=== PATIENT | male | born 1970 | race Caucasian/White ===

== ENCOUNTER 2019-05-09 15:34 | Emergency (ER) | payer OTHER ==
--- NOTE | 2019-05-09 16:20 | RAD REPORT ---
EXAM DESCRIPTION: CT - Stone Protocol - 05/09/2019 4:07 pm CLINICAL HISTORY: Abdominal pain. Inguinal swelling COMPARISON: None. TECHNIQUE: Computed axial tomography of the abdomen pelvis was obtained without oral or IV contrast. Lack of IV and oral contrast limits evaluation of solid organs, bowel, and vessels. Coronal reformat erickson images were obtained and reviewed. All CT scans are performed using dose optimization technique as appropriate and may include automated exposure control or mA/KV adjustment according to patient size. FINDINGS: A renal calculus is not seen. An ureteral calculus is not noted. A bladder calculus is not present. A 22 millimeter hepatic cyst Spleen, pancreas and adrenals appear grossly normal There is no evidence of diverticulitis. The appendix appears normal Small left inguinal hernia contains fat IMPRESSION: Negative for a genitourinary calculus Small left inguinal hernia contains fat
--- NOTE | 2019-05-09 17:07 | EDPHYS ---
Physician Documentation [facility] Name: Sarabjit Renner Age: 48 yrs Sex: Male : 1970 Arrival Date: 05/09/2019 Time: 15:36 Bed 16 Private MD: ED Physician William Tafoya HPI: 05/08 18:53 This 48 yrs old Male presents to ER via Ambulatory with complaints of Hernia. kb 18:53 The patient presents with swelling, of the left inguinal area. Onset: The kb symptoms/episode began/occurred 1 month(s) ago. Modifying factors: The symptoms are alleviated by nothing, the symptoms are aggravated by nothing. Associated signs and symptoms: The patient has no apparent associated signs or symptoms. Severity of symptoms: At their worst the symptoms were moderate, in the emergency department the symptoms are unchanged. The patient has not experienced similar symptoms in the past. The patient has not recently seen a physician. Pt reports swelling to left groin over the last month. Historical: - Allergies: 15:51 No Known Allergies; ca1 - Home Meds: 15:51 None [Active]; ca1 - PMHx: 15:51 Deaf; ca1 - PSHx: 15:51 Vasectomy; ca1 - Immunization history:: Adult Immunizations up to date, Flu vaccine is up to date. - Social history:: Smoking status: Patient denies any tobacco usage or history of. ROS: 18:52 Constitutional: Negative for fever, chills, and weight loss, Cardiovascular: Negative kb for chest pain, palpitations, and edema, Respiratory: Negative for shortness of breath, cough, wheezing, and pleuritic chest pain, Abdomen/GI: Negative for abdominal pain, nausea, vomiting, diarrhea, and constipation, Back: Negative for injury and pain, MS/Extremity: Negative for injury and deformity, Skin: Negative for injury, rash, and discoloration, Neuro: Negative for headache, weakness, numbness, tingling, and seizure. 18:52 : Positive for swelling in groin. Exam: 18:52 Constitutional: This is a well developed, well nourished patient who is awake, alert, kb and in no acute distress. Head/Face: Normocephalic, atraumatic. Neck: Trachea midline, no thyromegaly or masses palpated, and no cervical lymphadenopathy. Supple, full range of motion without nuchal rigidity, or vertebral point tenderness. No Meningismus. Chest/axilla: Normal chest wall appearance and motion. Nontender with no deformity. No lesions are appreciated. Cardiovascular: Regular rate and rhythm with a normal S1 and S2. No gallops, murmurs, or rubs. Normal PMI, no JVD. No pulse deficits. Respiratory: Lungs have equal breath sounds bilaterally, clear to auscultation and percussion. No rales, rhonchi or wheezes noted. No increased work of breathing, no retractions or nasal flaring. Abdomen/GI: Soft, non-tender, with normal bowel sounds. No distension or tympany. No guarding or rebound. No evidence of tenderness throughout. Skin: Warm, dry with normal turgor. Normal color with no rashes, no lesions, and no evidence of cellulitis. MS/ Extremity: Pulses equal, no cyanosis. Neurovascular intact. Full, normal range of motion. Neuro: Awake and alert, GCS 15, oriented to person, place, time, and situation. Cranial nerves II-XII grossly intact. Motor strength 5/5 in all extremities. Sensory grossly intact. Cerebellar exam normal. Normal gait. 18:52 Abdomen/GI: Hernia: noted in the left inguinal area, incarceration, is not appreciated, tenderness, is not appreciated. Vital Signs: 15:46 BP 138 / 92; Pulse 98; Resp 17 S; Temp 97.8(TE); Pulse Ox 100% on R/A; Weight 77.11 kg ca1 (R); Height 5 ft. 9 in. (175.26 cm) (R); 17:35 BP 141 / 85; Pulse 87; Resp 17; Temp 97.8; Pulse Ox 99% ; bp 15:46 Body Mass Index 25.10 (77.11 kg, 175.26 cm) ca1 MDM: 15:55 Patient medically screened. kb 18:50 Data reviewed: vital signs, nurses notes. Data interpreted: Pulse oximetry: on room air kb is 99 %. Interpretation: normal. 18:50 Counseling: I had a detailed discussion with the patient and/or guardian regarding: the kb historical points, exam findings, and any diagnostic results supporting the discharge/admit diagnosis, radiology results, the need for outpatient follow up, a general surgeon, to return to the emergency department if symptoms worsen or persist or if there are any questions or concerns that arise at home. 05/08 15:59 Order name: CT Stone Protocol; Complete Time: 16:38 kb Administered Medications: No medications were administered Disposition: 05/09 10:46 Co-signature as Attending Physician, William Tafoya MD I agree with the assessment and kdr plan of care. Disposition: 05/09/19 17:04 Discharged to Home. Impression: Inguinal hernia. - Condition is Stable. - Discharge Instructions: Inguinal Hernia, Adult, [id number]. - Medication Reconciliation Form, Thank You Letter, Antibiotic Education, Prescription Opioid Use, Work release form form. - Follow up: Emergency Department; When: As needed; Reason: Worsening of condition. Follow up: Private Physician; When: 2 - 3 days; Reason: Recheck today's complaints, Continuance of care, Re-evaluation by your physician. Signatures: Dispatcher [employer] EDMS Dinah Chu, INTERNAL MEDICINE VETERINARY TECHNICIAN-C LOUISA-William Gilbert MD MD [facility] Won Mccrary RN RN Chen Selby RN RN ca1 Corrections: (The following items were deleted from the chart) 05/08 17:38 17:04 05/09/2019 17:04 Discharged to Home. Impression: Inguinal hernia. Condition is bp Stable. Forms are Medication Reconciliation Form, Thank You Letter, Antibiotic Education, Prescription Opioid Use. Follow up: Emergency Department; When: As needed; Reason: Worsening of condition. Follow up: Private Physician; When: 2 - 3 days; Reason: Recheck today's complaints, Continuance of care, Re-evaluation by your physician. kb
--- NOTE | 2019-05-09 17:07 | ER ---
Nurse's Notes [facility] Name: Sarabjit Renner Age: 48 yrs Sex: Male : 1970 Arrival Date: 05/09/2019 Time: 15:36 Bed 16 Private MD: Diagnosis: Inguinal hernia Presentation: 05/08 15:46 Chief complaint: Patient states: L inguinal area swelling x 1 month. reports pain 1 ca1 time but not at this time. Reports history of hernia. Coronavirus screen: The patient has NOT traveled to a country currently being monitored by the [facility] within the last 14 days. The patient has NOT had contact with any known and/or suspected case of coronavirus. Ebola Screen: Patient negative for fever greater than or equal to 101.5 degrees Fahrenheit, and additional compatible Ebola Virus Disease symptoms Patient denies exposure to infectious person. Patient denies travel to an Ebola-affected area in the 21 days before illness onset. No symptoms or risks identified at this time. Initial Sepsis Screen: Does the patient meet any 2 criteria? No. Patient's initial sepsis screen is negative. Does the patient have a suspected source of infection? No. Patient's initial sepsis screen is negative. Risk Assessment: Do you want to hurt yourself or someone else? Patient reports no desire to harm self or others. Onset of symptoms was May 09, 2019. 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 ca1 Triage Assessment: 15:50 General: Appears in no apparent distress. comfortable, Behavior is calm, cooperative, bp appropriate for age. Pain: Complains of pain in pelvis. EENT: No deficits noted. Neuro: No deficits noted. Cardiovascular: No deficits noted. Respiratory: No deficits noted. GI: No deficits noted. : LEFT INGUINAL SWELLING. Derm: No deficits noted. Musculoskeletal: No deficits noted. Historical: - Allergies: 15:51 No Known Allergies; ca1 - Home Meds: 15:51 None [Active]; ca1 - PMHx: 15:51 Deaf; ca1 - PSHx: 15:51 Vasectomy; ca1 - Immunization history:: Adult Immunizations up to date, Flu vaccine is up to date. - Social history:: Smoking status: Patient denies any tobacco usage or history of. Screenin:07 Abuse screen: Denies threats or abuse. Denies injuries from another. Nutritional bp screening: No deficits noted. Tuberculosis screening: No symptoms or risk factors identified. Fall Risk None identified. Assessment: 15:52 Reassessment: Pt is deaf, uses sign language. ca1 17:36 Reassessment: PT D/C HOME AMBULATORY, DX WITH INGUINAL HERNIA. ARRANGEMENT MADE WITH PT bp FRIENDS TO ASSIST IN ARRANGING SURGERY APPOINTMENT FOR PT 2/2 HEARING IMPAIRMENT. Vital Signs: 15:46 BP 138 / 92; Pulse 98; Resp 17 S; Temp 97.8(TE); Pulse Ox 100% on R/A; Weight 77.11 kg ca1 (R); Height 5 ft. 9 in. (175.26 cm) (R); 17:35 BP 141 / 85; Pulse 87; Resp 17; Temp 97.8; Pulse Ox 99% ; bp 15:46 Body Mass Index 25.10 (77.11 kg, 175.26 cm) ca1 ED Course: 15:36 Patient arrived in ED. rg4 15:44 Dinah Chu FNP-C is [facility]. kb 15:44 William Tafoya MD is Attending Physician. kb 15:49 Triage completed. ca1 15:51 Arm band placed on right wrist. ca1 15:55 Won Mccrary, RN is Primary Nurse. bp 16:10 CT Stone Protocol In Process Unspecified. EDMS 17:07 Patient has correct armband on for positive identification. Placed in gown. Bed in low bp position. Call light in reach. Side rails up X2. 17:08 No provider procedures requiring assistance completed. Patient did not have IV access bp during this emergency room visit. Administered Medications: No medications were administered Outcome: 17:04 Discharge ordered by . kb 17:36 Discharged to home ambulatory. bp 17:36 Condition: stable 17:36 Discharge instructions given to patient, Instructed on discharge instructions, follow up and referral plans. Demonstrated understanding of instructions, follow-up care. 17:38 Patient left the ED. bp Signatures: Dispatcher [employer] EDDC Dinah Chu FNP-C FNP-Ckb Garcia, Rubi rg4 Won Mccrary, RN RN bp Chen Rojas RN RN ca1
[2019-05-09 17:44] VITALS: TEMP 97.8
[2019-05-09 17:47] VITALS: BP 141/85; O2SAT 99
== END 2019-05-09 17:38 | disposition home or self-care (01) ==
LOC: ER 15:34
DX: K40.90 Unilateral inguinal hernia, without obstruction or gangrene, not specified as recurrent (principal)
CPT/HCPCS: 74176; 76377; 99283

== ENCOUNTER 2019-05-18 08:26 | Day surgery (SDC) | payer OTHER ==
[2019-05-18] MEDS ORDERED: CEFAZOLIN/SWI 1gm 1 GM/10 ML SYR ONE (08:59)
[2019-05-18] MEDS ORDERED: Ringers Lactate 1,000 ML IV ONE (08:59)
[2019-05-18] MEDS ORDERED: propofoL 200 MG/20 ML VIAL IV ONE (09:31)
[2019-05-18] MEDS ORDERED: ROCURONIUM 50 MG/5 ML VIAL IV ONE (09:32)
[2019-05-18] MEDS ORDERED: FENTANYL CITR 250 MCG/5 ML ONE (09:33)
[2019-05-18] MEDS ORDERED: GLYCOPYRROLATE 0.2 MG/ML SYR ONE (09:33)
[2019-05-18] MEDS ORDERED: NEOSTIGMINE 1 MG/ML -5 ML ONE (09:34)
[2019-05-18] MEDS ORDERED: LIDOCAINE 1% MPF 2 ML AMPULE ONE (09:34)
[2019-05-18] MEDS ORDERED: MIDAZOLAM HCL 2 MG/2 ML INJ ONE (09:34)
[2019-05-18] MEDS ORDERED: BUPIVACA 0.5%/EPI 0.0005%/PF 30 ML VIAL ONE (10:13)
--- NOTE | 2019-05-18 11:31 | P.OP ---
Preoperative diagnosis: Recurrent LEFT inguinal Hernia Postoperative diagnosis: Recurrent LEFT inguinal Hernia Primary procedure: Open Repair of Recurrent LEFT inguinal Hernia with mesh Anesthesia: GETA + Local Estimated blood loss: <2cc Specimen: Hernia Sack Findings: Recurrent Indirect inguinal hernia Complications: None Implants: Bard Perfix LARGE plug and patch Transferred to: Recovery Room Condition: Good
[2019-05-18] MEDS ORDERED: ONDANSETRON 4 MG/2 ML VIAL ONE (12:03)
[2019-05-18] MEDS: HYDROMORPHONE HCL 1 MG/ML INJ ONE ×4 (12:03→12:18)
[2019-05-18 12:23] VITALS: O2SAT 99
[2019-05-18 12:48] VITALS: BP 117/79; TEMP 97.1
[2019-05-18] MEDS ORDERED: HYDROCODONE/APAP 5/325 MG TAB ONE (13:02)
--- NOTE | 2019-05-18 21:28 | OP ---
Date of Procedure: 05/18/2019 Surgeon: Ravi Burrows MD, Preoperative Diagnosis: Recurrent left inguinal hernia. Postoperative Diagnosis: Recurrent left inguinal hernia. Procedure Performed: Open repair of recurrent left inguinal hernia with mesh/plug and patch system. Anesthesia: General endotracheal plus local with 0.5% Marcaine with epinephrine. Estimated Blood Loss: Less than 2 mL. Specimen: Hernia sac. Findings: Large recurrent left indirect inguinal hernia. Complications: None. Implants: Bard PerFix large plug and patch repair system. Disposition: Transferred to recovery room in good condition. Procedure In Detail: Informed consent was obtained. Patient was brought to the operating room, prep ped and draped in the usual sterile fashion. After adequate anesthesia was achieved, I cutdown throu gh previous incision in the left inguinal region, dissected down through significant scar tissue. Ca mper's fat, Goldie's fascia were all matted together and significant scar tissue was evident distorti ng the planes. I did not identify the external oblique aponeurosis as the tissue planes had been pre viously violated and they were significantly scarred in, likely due to previous mesh placement. I di ssected down to find the spermatic cord structures after skeletonized and identifying the spermatic c ord structures including vas deferens and the associated vascular supply. I encircled the spermatic cord structures with a White Owl drain and dissected to find a hernia defect on the medial aspect which was quite large, consistent with an indirect inguinal hernia. I then circumferentially dissected th e fat in adipose tissue and preperitoneal fat, placed back in the preperitoneal space. After this wa s appropriately positioned, I brought on hydrated the large Bard PerFix hernia plug and patch system. I hydrated the plug first and placed into the defect and secured it to the shelving edge circumfere ntially with simple interrupted 2-0 PDS sutures with good approximation of tissues. I then fashioned a large PerFix patch appropriately and placed under the spermatic cord structures and secured to the pubic tubercle and the medial lateral shelving edges using the same set to 2-0 PDS suture. After th is was performed, I copiously irrigated the area multiple times completely clear. Valsalva the patie nt to ensure there was no hernia bulging or any other defects evident, which were not appreciated. I then reduced the testicle back in the normal anatomic position and the spermatic cord and structures had an appropriate position. I then copiously irrigated the area once again, dried and closed the s car tissue and external oblique aponeurosis tissue over the top using a simple interrupted 3-0 Vicryl suture. The skin was then irrigated once again, closed with a 4-0 Monocryl in a running fashion, De rmabond placed on top. Patient tolerated the procedure without incident or complication, transferred to PACU in good condition. All counts were correct at the end of the case. LETI/SAMAN Voice ID: [id number] Report ID: [id number]
== END 2019-05-18 14:05 | disposition home or self-care (01) ==
LOC: OR 08:26
PROVIDERS: ATTEND Surgery
PROC: 0YU60JZ Supplement Left Inguinal Region with Synthetic Substitute, Open Approach (ICD-10-PCS; principal; 2019-05-18 10:30)
DX: K40.91 Unilateral inguinal hernia, without obstruction or gangrene, recurrent (principal); H91.3 Deaf nonspeaking, not elsewhere classified
CPT/HCPCS: 88302; 49520; J2704; J2250; J3010; J2001; J1170 ×2; J2710; J0690; J7120; J2405

== ENCOUNTER 2020-08-07 13:53 | Emergency (ER) | payer OTHER ==
[2020-08-07 14:45] LABS: Urine Blood Negative (Negative); Urine Glucose Negative (Negative); Urine Protein Negative (Negative); Urine Specific Gravity >=1.030 (1.005-1.030); Urine pH 5.5 (5.0-7.0)
[2020-08-07 15:54] LABS: Basophils % 0.8 % (0-1.3); Hematocrit 44.6 % (39.6-49.0); Lymphocytes % 18.8 % (15.3-44.8); MPV 8.9 fL (7.6-11.3); RBC Red Blood Cell Count 4.92 M/uL (4.33-5.43)
[2020-08-07 16:03] LABS: Barbiturates NEGATIVE (NEGATIVE); Benzodiazepines NEGATIVE (NEGATIVE); Cocaine NEGATIVE (NEGATIVE); METHAMPHETAM NEGATIVE (NEGATIVE); Methadone NEGATIVE (NEGATIVE); Opiates NEGATIVE (NEGATIVE); Phencyclidine NEGATIVE (NEGATIVE); THC Cannibis NEGATIVE (NEGATIVE)
[2020-08-07 16:09] LABS: Protime INR 0.97
[2020-08-07 16:19] LABS: ALT/SGPT 25 U/L (12-78); AST/SGOT 17 U/L (15-37); Alkaline Phosphatase 68 U/L (45-117); BUN Blood Urea Nitrogen 21 mg/dL (7-18); Bicarbonate 33 mmol/L (21-32); Bilirubin Direct 0.3 mg/dL (0-0.2); Bilirubin Total 1.8 mg/dL (0.2-1.0); Glucose Level 84 mg/dL (74-106); Potassium 3.9 mmol/L (3.5-5.1); Protein, Total 7.3 g/dL (6.4-8.2); Sodium Level 144 mmol/L (136-145)
--- NOTE | 2020-08-07 18:01 | EDPHYS ---
Physician Documentation [facility] Name: Sarabjit Renner Age: 50 yrs Sex: Male : 1970 Arrival Date: 08/07/2020 Time: 13:54 Bed 16 Private MD: ED Physician William Tafoya HPI: 08/07 18:00 This 50 yrs old Male presents to ER via Ambulatory with complaints of kdr Suicidal Ideation. 18:00 The patient presents to the emergency department with depression, over a relationship, kdr has had a recent break-up, suicide ideation, and the patient has a plan, to shoot self. Onset: The symptoms/episode began/occurred suddenly, 1 week(s) ago. Associated signs and symptoms: The patient has no apparent associated signs or symptoms. Severity of symptoms: At their worst the symptoms were moderate in the emergency department the symptoms are unchanged. The patient has not experienced similar symptoms in the past. The patient has not recently seen a physician. Historical: - Allergies: 14:06 No Known Allergies; jl7 - Home Meds: 14:06 None [Active]; jl7 - PMHx: 14:06 Deaf; Hypertension; jl7 - PSHx: 14:06 Vasectomy; jl7 - Immunization history:: Adult Immunizations up to date. - Social history:: Smoking status: Patient denies any tobacco usage or history of. Patient uses alcohol, occasionally. Patient/guardian denies using street drugs. ROS: 18:00 Constitutional: Negative for fever, chills, and weight loss, Eyes: Negative for injury, kdr pain, redness, and discharge, ENT: Negative for injury, pain, and discharge, Neck: Negative for injury, pain, and swelling, Cardiovascular: Negative for chest pain, palpitations, and edema, Respiratory: Negative for shortness of breath, cough, wheezing, and pleuritic chest pain, Abdomen/GI: Negative for abdominal pain, nausea, vomiting, diarrhea, and constipation, Back: Negative for injury and pain, : Negative for injury, bleeding, discharge, and swelling, MS/Extremity: Negative for injury and deformity, Skin: Negative for injury, rash, and discoloration, Neuro: Negative for headache, weakness, numbness, tingling, and seizure activity. Allergy/Immunology: Negative for hives, rash, and allergies, Endocrine: Negative for neck swelling, polydipsia, polyuria, polyphagia, and marked weight changes, Hematologic/Lymphatic: Negative for swollen nodes, abnormal bleeding, and unusual bruising. 18:00 Psych: Positive for depression, insomnia, suicidal ideation, Negative for drug dependence, alcohol dependence, auditory hallucinations, visual hallucinations, homicidal ideation. Exam: 14:43 ECG was reviewed by the Attending Physician. kdr 18:00 Constitutional: This is a well developed, well nourished patient who is awake, alert, kdr and in no acute distress. Head/Face: Normocephalic, atraumatic. Eyes: Pupils equal round and reactive to light, extra-ocular motions intact. Lids and lashes normal. Conjunctiva and sclera are non-icteric and not injected. Cornea within normal limits. Periorbital areas with no swelling, redness, or edema. Neck: Trachea midline, no thyromegaly or masses palpated, and no cervical lymphadenopathy. Supple, full range of motion without nuchal rigidity, or vertebral point tenderness. No Meningismus. Chest/axilla: Normal chest wall appearance and motion. Nontender with no deformity. No lesions are appreciated. Cardiovascular: Regular rate and rhythm with a normal S1 and S2. No gallops, murmurs, or rubs. Normal PMI, no JVD. No pulse deficits. Respiratory: Lungs have equal breath sounds bilaterally, clear to auscultation and percussion. No rales, rhonchi or wheezes noted. No increased work of breathing, no retractions or nasal flaring. Abdomen/GI: Soft, non-tender, with normal bowel sounds. No distension or tympany. No guarding or rebound. No evidence of tenderness throughout. Back: No spinal tenderness. No costovertebral tenderness. Full range of motion. Skin: Warm, dry with normal turgor. Normal color with no rashes, no lesions, and no evidence of cellulitis. MS/ Extremity: Pulses equal, no cyanosis. Neurovascular intact. Full, normal range of motion. Neuro: Awake and alert, GCS 15, oriented to person, place, time, and situation. Cranial nerves II-XII grossly intact. Motor strength 5/5 in all extremities. Sensory grossly intact. Cerebellar exam normal. Normal gait. 18:00 Psych: Behavior/mood is pleasant, cooperative, Affect is calm, Oriented to person, place, time, Patient having thoughts of suicide. Plan for suicide is GSW Judgement / Insight is normal. Memory is normal. Delusions/hallucinations are not present. Vital Signs: 13:59 BP 139 / 93; Pulse 100; Resp 17; Pulse Ox 100% ; jl7 17:41 BP 132 / 84; Pulse 74; Resp 16; Temp 98.0; Pulse Ox 100% on R/A; Pain 0/10; ll1 MDM: 18:00 Patient medically screened. kdr 18:05 Data reviewed: vital signs, nurses notes, lab test result(s). Counseling: I had a kdr detailed discussion with the patient and/or guardian regarding: the historical points, exam findings, and any diagnostic results supporting the discharge/admit diagnosis, lab results, the need to transfer to another facility. 08/07 14:23 Order name: Acetaminophen [facility] 08/07 14:23 Order name: Basic Metabolic Panel [facility] 08/07 14:23 Order name: CBC with Diff [facility] 08/07 14:23 Order name: ETOH Level; Complete Time: 17:57 [facility] 08/07 14:23 Order name: Hepatic Function; Complete Time: 17:57 [facility] 08/07 14:23 Order name: PT-INR; Complete Time: 17:57 [facility] 08/07 14:23 Order name: Ptt, Activated; Complete Time: 17:57 [facility] 08/07 14:23 Order name: Salicylate; Complete Time: 17:57 [facility] 08/07 14:23 Order name: Urine Drug Screen; Complete Time: 17:57 [facility] 08/07 14:24 Order name: Acetaminophen Level; Complete Time: 17:57 [facility] 08/07 14:24 Order name: Basic Metabolic Panel; Complete Time: 17:57 [facility] 08/07 14:24 Order name: CBC with Automated Diff; Complete Time: 17:57 [facility] 08/07 14:45 Order name: Urine Dipstick-Ancillary; Complete Time: 17:57 [facility] 08/07 14:23 Order name: EKG; Complete Time: 14:24 [facility] 08/07 14:23 Order name: EKG - Nurse/Tech; Complete Time: 14:34 [facility] 08/07 14:23 Order name: IV Saline Lock; Complete Time: 14:34 [facility] 08/07 14:23 Order name: Labs collected and sent; Complete Time: 14:34 [facility] 08/07 14:23 Order name: Suicide Screening ([place]); Complete Time: 14:34 [facility] 08/07 14:23 Order name: Urine Dipstick-Ancillary (obtain specimen); Complete Time: 14:50 [facility] 08/07 17:31 Order name: SARS-COV-2 RT PCR; Complete Time: 17:57 [facility] 08/07 18:01 Order name: Diet Regular; Complete Time: 18:01 ll1 EC:43 Rate is 86 beats/min. Rhythm is regular, Normal Sinus Rhythm with No ectopy. QRS Model kdr is Normal. NV interval is normal. QRS interval is normal. QT interval is normal. Clinical impression: Normal ECG. Administered Medications: No medications were administered Disposition: 08/07/20 18:00 Transfer ordered to Psych Facility. Diagnosis is Depression, SI. - Reason for transfer: Higher level of care. - Accepting physician is Dr. Dang/Armando Mata. - Condition is Stable. - Problem is new. - Symptoms are unchanged. Signatures: Dispatcher [employer] [facility] William Tafoya MD MD kdr Annie Ly RN RN jl7 Shane Francisco RN RN ll1 Corrections: (The following items were deleted from the chart) 16:31 15:30 CORONAVIRUS+MR.LAB.BRZ ordered. [facility] 18:49 18:00 08/07/2020 18:00 Transfer ordered to Psych Facility. Diagnosis is Depression, SI. ll1 Reason for transfer: Higher level of care. Accepting physician is Dr. Dang/Armando Mata. Condition is Stable. Problem is new. Symptoms are unchanged. kdr
--- NOTE | 2020-08-07 18:01 | ER ---
Nurse's Notes 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 I feel alone, I don't have family. I don't have any friends. I don't see the point in living. Barriegarima: He told me this morning he wants to shoot himself. Chelsy: He does have access to a gun, it's in his safe, ex- has the boyer to the safe. Coronavirus screen: Client denies travel out of the [place] in the last 14 days. At this time, the client does not indicate any symptoms associated with coronavirus-19. Ebola Screen: No symptoms or risks identified at this time. Initial Sepsis Screen: Does the patient meet any 2 criteria? No. Patient's initial sepsis screen is negative. Does the patient have a suspected source of infection? No. Patient's initial sepsis screen is negative. Risk Assessment: Do you want to hurt yourself or someone else? Patient reports no desire to harm self or others. Onset of symptoms was August 06, 2020. Care prior to arrival: None. 13:59 Method Of Arrival: Ambulatory [facility] 13:59 Acuity: ALONZO 2 jl7 Historical: - Allergies: 14:06 No Known Allergies; jl7 - Home Meds: 14:06 None [Active]; jl7 - PMHx: 14:06 Deaf; Hypertension; jl7 - PSHx: 14:06 Vasectomy; jl7 - Immunization history:: Adult Immunizations up to date. - Social history:: Smoking status: Patient denies any tobacco usage or history of. Patient uses alcohol, occasionally. Patient/guardian denies using street drugs. Screenin:42 Abuse screen: Denies threats or abuse. Nutritional screening: No deficits noted. ll1 Tuberculosis screening: No symptoms or risk factors identified. Fall Risk IV access (20 points). Total Thomas Fall Scale indicates No Risk (0-24 pts). Assessment: 14:40 General: Appears in no apparent distress. Behavior is calm, cooperative, appropriate ll1 for age. General: SI (plan to shoot himself with a gun). Has access to a gun in his safe at home. Recent life stressors (divorce). . Pain: Denies pain. Neuro: No deficits noted. Cardiovascular: No deficits noted. Respiratory: No deficits noted. 15:40 Reassessment: No changes from previously documented assessment. Patient and/or family ll1 updated on plan of care and expected duration. Pain level reassessed. Patient is alert, oriented x 3, equal unlabored respirations, skin warm/dry/pink. 16:40 Reassessment: No changes from previously documented assessment. Patient and/or family ll1 updated on plan of care and expected duration. Pain level reassessed. Patient is alert, oriented x 3, equal unlabored respirations, skin warm/dry/pink. 17:40 Reassessment: No changes from previously documented assessment. Patient and/or family ll1 updated on plan of care and expected duration. Pain level reassessed. 18:40 Reassessment: No changes from previously documented assessment. Patient and/or family ll1 updated on plan of care and expected duration. Pain level reassessed. Patient is alert, oriented x 3, equal unlabored respirations, skin warm/dry/pink. Psych: 15:42 Luce Suicide Severity Screening: In the past month, have you wished you were ll1 or wished you could go to sleep and not wake up? Patient responds "yes." "In the past month, have you actually had any thoughts of killing yourself?" Patient responds "yes." "In your lifetime, have you ever done anything, started to do anything, or prepared to do anything to end your life?" Patient responds "yes." Patient reports suicidal intent within 3 past months. Subjective: Having thoughts of suicide. Plan for suicide is shoot himself. Objective: Patient is cooperative, Speech is normal, Affect is appropriate. Interventions: Removed personal items and placed in bag. Patient placed in hospital gown. Safety Checks: Personal items have been removed. Door is open. Visitors are present. Pt denies substance abuse. 18:48 Commitment: Patient will be a voluntary commitment. ll1 Vital Signs: 13:59 BP 139 / 93; Pulse 100; Resp 17; Pulse Ox 100% ; jl7 17:41 BP 132 / 84; Pulse 74; Resp 16; Temp 98.0; Pulse Ox 100% on R/A; Pain 0/10; ll1 ED Course: 13:54 Patient arrived in ED. as 14:01 William Tafoya MD is Attending Physician. kdr 14:05 Triage completed. jl7 14:06 Arm band placed on right wrist. jl7 14:15 Inserted saline lock: 22 gauge in left antecubital area, using aseptic technique. Blood ll1 collected. 14:22 Shane Francisco, RN is Primary Nurse. ll1 15:43 Patient has correct armband on for positive identification. Bed in low position. Call ll1 light in reach. Side rails up X 1. Cardiac monitoring not applicable on this patient. 17:01 faxed chart to [facility]. bd 17:16 faxed chart to [facility]. bd 17:27 faxed chart to [facility]. bd 18:04 pt accepted in transfer to [facility], by Dr Dang, admin approval given by neida Cota. 18:48 No provider procedures requiring assistance completed. IV discontinued, intact, ll1 bleeding controlled, No redness/swelling at site. Pressure dressing applied. Administered Medications: No medications were administered Outcome: 18:00 ER care complete, transfer ordered by . kdr 18:49 Transferred by private ambulance to other acute care facility: [facility]. ll1 18:49 Condition: stable 18:49 Instructed on the need for transfer. 18:49 Patient left the ED. ll1 Signatures: Annita Triplett Kevin, MD MD kdr Kristine Oliveira Jahala, RN RN jl7 Shane Francisco, RN RN ll1
[2020-08-07 18:55] VITALS: O2SAT 100
[2020-08-07 18:56] VITALS: BP 132/84; TEMP 98
== END 2020-08-07 18:49 ==
LOC: ER 13:53
DX: R45.851 Suicidal ideations (principal); Z20.822 Contact with and (suspected) exposure to COVID-19; I10 Essential (primary) hypertension
CPT/HCPCS: 93005; 85025; 80048; 36415; 80320; 80329 ×2; 85610; 80076; 80307 ×8; 85730; 81003; 99285; U0003

== ENCOUNTER → 2023-05-23 | Emergency (ER) | payer BC ==
--- OUTSIDE RECORDS SUMMARY | 2023-05-23 14:34 | XMS REPORT | Continuity of Care Document ---
Author Name Unknown Address [address] [facility]. [address] [employer] Address [address] [place] [address] 1 [address] [place] [address] Care Team Providers Care Reconciler Name Role Phone Unavailable Unavailable Unavailable Encounters Start Date/Time End Date/Time Encounter Type Admission Type Attending Clinicians Care Facility Care Department Encounter ID Source 2023-04-04 16:31:28 2023-04-04 16:31:28 Outpatient [facility] [id number]ala
--- NOTE | 2023-05-23 15:19 | ER ---
Nurse's Notes [facility] Name: Sarabjit Renner Age: 52 yrs Sex: Male : 1970 Arrival Date: 05/23/2023 Time: 14:32 Bed 10 Private MD: Diagnosis: Septic Bursitis Presentation: 05/22 15:07 Chief complaint: Patient states: Swelling and pain to R elbow, denies trauma. ph Coronavirus screen: Vaccine status: Patient reports receiving the 2nd dose of the covid vaccine. Ebola Screen: No symptoms or risks identified at this time. Initial Sepsis Screen: Does the patient meet any 2 criteria? No. Patient's initial sepsis screen is negative. Does the patient have a suspected source of infection? No. Patient's initial sepsis screen is negative. Risk Assessment: Do you want to hurt yourself or someone else? Patient reports no desire to harm self or others. Onset of symptoms was May 23, 2023. 15:07 Method Of Arrival: Ambulatory 15:07 Acuity: ALONZO 4 Triage Assessment: 15:11 General: Appears in no apparent distress. Behavior is calm, cooperative. Pain: ph Complains of pain in right elbow. Neuro: Level of Consciousness is awake, alert, obeys commands, Oriented to person, place, time, situation. Musculoskeletal: Swelling present in right elbow. Historical: - Allergies: 15:10 No Known Allergies; ph - Home Meds: 15:50 None [Active]; tl4 - PMHx: 15:10 Deaf; Hypertension; ph - Immunization history:: Adult Immunizations unknown. - Social history:: Smoking status: Patient denies any tobacco usage or history of. Screenin:12 [facility] ED Fall Risk Assessment (Adult) History of falling in the last 3 months, ph including since admission No falls in past 3 months (0 pts) Confusion or Disorientation No (0 pts) Intoxicated or Sedated No (0 pts) Impaired Gait No (0 pts) Mobility Assist Device Used No (0 pt) Altered Elimination No (0 pt) Score/Fall Risk Level 0 - 2 = Low Risk Oriented to surroundings, Maintained a safe environment, Hourly rounding (assess needs \T\ fall precautionary measures) done. Abuse screen: Denies threats or abuse. Denies injuries from another. Nutritional screening: No deficits noted. Tuberculosis screening: No symptoms or risk factors identified. Assessment: 15:49 General: Appears in no apparent distress. Behavior is calm, cooperative. Pain: tl4 Complains of pain in right elbow. Neuro: Level of Consciousness is awake, alert, obeys commands, Oriented to person, place, time, situation, Gait is steady, Facial symmetry appears normal. Cardiovascular: No deficits noted. Capillary refill < 3 seconds Patient's skin is warm and dry. Respiratory: No deficits noted. Breath sounds are clear bilaterally. GI: No deficits noted. No signs and/or symptoms were reported involving the gastrointestinal system. : No deficits noted. No signs and/or symptoms were reported regarding the genitourinary system. EENT: No deficits noted. No signs and/or symptoms were reported regarding the EENT system. Derm: No deficits noted. No signs and/or symptoms reported regarding the dermatologic system. Musculoskeletal: Swelling present in right elbow. Vital Signs: 15:07 BP 137 / 86; Pulse 87; Resp 18; Temp 97.1; Pulse Ox 100% on R/A; ph 15:51 BP 125 / 70; Pulse 76; Resp 18; Temp 97.6(TE); Pulse Ox 99% on R/A; Pain 5/10; tl4 15:51 Pain Scale: Adult tl4 Britton Coma Score: 15:51 Eye Response: spontaneous(4). Motor Response: obeys commands(6). Verbal Response: tl4 oriented(5). Total: 15. ED Course: 14:34 Patient arrived in ED. rg4 14:35 Power Lara MD is Attending Physician. ec2 15:10 Triage completed. ph 15:11 Arm band placed on right wrist. Patient placed in waiting room, Patient notified of ph wait time. 15:11 Patient has correct armband on for positive identification. ph 15:38 Nakul Lopez, DAVID is Primary Nurse. tl4 15:48 No provider procedures requiring assistance completed. Patient did not have IV access tl4 during this emergency room visit. Israel wrap to right elbow. 15:53 Provided Education on: ED process. tl4 Administered Medications: No medications were administered Medication: 15:12 VIS not applicable for this client. ph Outcome: 15:18 Discharge ordered by . ec2 15:52 Discharged to home ambulatory, tl4 15:52 Condition: stable 15:52 Discharge instructions given to patient, Instructed on discharge instructions, follow up and referral plans. medication usage, israel bandage use Demonstrated understanding of instructions, follow-up care, medications, israel bandage use Prescriptions given X 1, 15:53 Patient left the ED. tl4 Signatures: Sidra Kennedy RN RN Joaquín, Kavya rg4 Power Lara MD MD ec2 Nakul Lopez RN RN tl4 Corrections: (The following items were deleted from the chart) 15:53 15:52 Discharge instructions given to patient, Instructed on discharge instructions, tl4 follow up and referral plans. israel bandage use Demonstrated understanding of instructions, follow-up care, israel bandage use Prescriptions given X 1, tl4
--- NOTE | 2023-05-23 15:19 | EDPHYS ---
Physician Documentation [facility] Name: Sarabjit Renner Age: 52 yrs Sex: Male : 1970 Arrival Date: 05/23/2023 Time: 14:32 Bed 10 Private MD: ED Physician Power Lara HPI: 05/22 15:16 This 52 yrs old Male presents to ER via Ambulatory with complaints of Elbow ec2 Swelling. 15:16 Patient arrives today for evaluation of right elbow pain and swelling. He states that ec2 he noticed some pain and swelling in the right elbow. States that he noticed some warmth as well. Patient reports no issues with mobility or movement over the right upper extremity. Patient denies any trauma or injury. Patient reports no fevers or chills, no nausea or vomiting. Patient is deaf, we use written communication to communicate.. Historical: - Allergies: 15:10 No Known Allergies; ph - Home Meds: 15:50 None [Active]; tl4 - PMHx: 15:10 Deaf; Hypertension; ph - Immunization history:: Adult Immunizations unknown. - Social history:: Smoking status: Patient denies any tobacco usage or history of. ROS: 15:16 Constitutional: as per hpi ec2 Exam: 15:16 Constitutional: GEN: NAD Head: atraumatic Eyes: EOMI Ears: External ears are ec2 normal. CV: regular rate LUNGS: no respiratory distress ABD: non-distended SKIN: Erythema noted to the right bursa, no marked fluctuance, no significant warmth, no discharge appreciated. MSK: Good range of motion of the right upper extremity. NEURO: moves all extremities equally Vital Signs: 15:07 BP 137 / 86; Pulse 87; Resp 18; Temp 97.1; Pulse Ox 100% on R/A; ph 15:51 BP 125 / 70; Pulse 76; Resp 18; Temp 97.6(TE); Pulse Ox 99% on R/A; Pain 5/10; tl4 15:51 Pain Scale: Adult tl4 Britton Coma Score: 15:51 Eye Response: spontaneous(4). Motor Response: obeys commands(6). Verbal Response: tl4 oriented(5). Total: 15. MDM: 15:17 Patient medically screened. ec2 15:17 Data reviewed: vital signs. ED course: Patient arrives today for evaluation of right ec2 elbow swelling. Examination remarkable for MSK skin findings as noted above. Presentation consistent with septic bursitis. No marked swelling, do not feel he would benefit from joint aspiration. Additionally patient with good range of motion, doubt septic joint. Patient without systemic signs symptoms to clinically fit that. Will defer any lab work such as CBC or BMP. Will defer any radiographs given lack of bony trauma. Will discharge with antibiotics and instructed in [id number] medications. Return precautions given.. 05/22 15:24 Order name: Israel wrap-joint; Complete Time: 15:48 ph Administered Medications: No medications were administered Disposition Summary: 05/23/23 15:18 Discharge Ordered Notes: Location: Home ec2 Condition: Stable ec2 Diagnosis - Septic Bursitis ec2 Followup: ec2 - With: Private Physician - When: - Reason: Re-evaluation by your physician Discharge Instructions: - Discharge Summary Sheet ec2 - Elbow Bursitis, [id number] ec2 Forms: - Medication Reconciliation Form ec2 - Thank You Letter ec2 - Antibiotic Education ec2 - Prescription Opioid Use ec2 - Patient Portal Instructions ec2 - Leadership Thank You Letter ec2 Prescriptions: - Clindamycin HCl 300 mg Oral capsule - take 1 capsule ORAL route every 8 hours for 10 days; 30 capsule; Refills: 0, ec2 Product Selection Permitted Signatures: Sidra Kennedy, RN RN Power Lara MD MD ec2 Nakul Lopez RN RN tl4
[2023-05-23 17:33] VITALS: BP 125/70; TEMP 97.6; O2SAT 99
== END ==
LOC: ER 14:32
DX: M71.121 Other infective bursitis, right elbow (principal); I10 Essential (primary) hypertension
CPT/HCPCS: 99283